=== PATIENT | female | born 1985 | race Caucasian/White ===

== ENCOUNTER 2018-01-16 10:03 | Emergency (ER) | payer MEDICAID ==
[2018-01-16] MEDS ORDERED: NS 1,000 ML IV ONE (10:25)
--- NOTE | 2018-01-16 10:26 | CPEKG ---
Heart Rate: 74 RR Interval: 811 P-R Interval: 144 QRSD Interval: 90 QT Interval: 356 QTC Interval: 395 P Jeff: 62 QRS Jeff: 53 T Wave Jeff: 20 EKG Severity - NORMAL ECG - EKG Impression: SINUS RHYTHM Electronically Signed By: Alondra Garsia 16-Jan-2018 13:37:01
[2018-01-16 10:39] LABS: PLATELET COUNT 207 10^3/uL (150-400)
--- NOTE | 2018-01-16 11:03 | EDPHY ---
H & P Stated Complaint: at work standing cutting hair became dizzy lightheaded Time Seen by Provider: 01/16/18 10:25 HPI/ROS: CHIEF COMPLAINT: Dizziness HISTORY OF PRESENT ILLNESS: 32-year-old female presents with a chief complaint of dizziness. 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 She eventually sat down in a chair and the symptoms resolved. She is currently asymptomatic. She slept well last night and ate a banana this morning. No recent illness. No prior episodes of syncope. REVIEW OF SYSTEMS: complete 10 point ROS negative except at noted in the HPI - Personal History LMP (Females 10-55): IUD In Place Current Tetanus/Diphtheria Vaccine: Unsure - Medical/Surgical History Hx Asthma: No Hx Chronic Respiratory Disease: No Hx Diabetes: No Hx Cardiac Disease: No Hx Renal Disease: No Hx Cirrhosis: No Hx Alcoholism: No Hx HIV/AIDS: No Hx Splenectomy or Spleen Trauma: No Other PMH: Denies - Social History Smoking Status: Current every day smoker - Physical Exam Exam: General Appearance: Alert, pleasant Eyes: Pupils equal and round, no conjunctival pallor ENT, Mouth: Normal inspection, Mucous membranes moist Neck: Normal inspection Respiratory: Lungs are clear to auscultation Cardiovascular: Regular rate and rhythm, no murmur Gastrointestinal: Abdomen is soft and nontender Neurological: A&O, CN II-XII intact, motor/sensory grossly intact, normal gait Skin: Warm and dry Extremities: Normal inspection Psychiatric: Mood and affect normal Constitutional: Initial Vital Signs Temperature (C) 36.8 C 01/16/18 10:10 Heart Rate 88 01/16/18 10:10 Respiratory Rate 17 01/16/18 10:10 Blood Pressure 116/79 01/16/18 10:10 O2 Sat (%) 96 01/16/18 10:10 O2 Delivery Mode Room Air Allergies/Adverse Reactions: No Known Allergies Allergy (Verified 01/16/18 10:10) Home Medications: Medication Instructions Recorded NK [No Known Home Meds] 01/16/18 Medical Decision Making - Diagnostics EKG Interpretation: EKG interpreted by me reveals normal sinus rhythm, rate 74, no ST or T segment changes. Interpretation: Normal EKG ED Course/Re-evaluation: This patient presents after an episode of dizziness, most likely vasovagal related to prolonged standing. EKG reveals no evidence of ischemia or dysrhythmia. IV normal saline 1 L given. Laboratory tests unremarkable. secured entrance monitor: NSR throughout. Warning signs discussed. Safe and stable for discharge home. Differential Diagnosis: Differential diagnosis includes though is not limited to cardiac dysrhythmia, CVA, TIA, GI bleed, sepsis, hypoglycemia. - Data Points Laboratory Results: Laboratory Results 01/16/18 10:32 01/16/18 10:32 Medications Given: Discontinued Medications Sodium Chloride (Ns) 1,000 mls @ 0 mls/hr IV ONCE ONE; Wide Open PRN Reason: Protocol Stop: 01/16/18 10:26 Last Admin: 01/16/18 10:31 Dose: 1,000 mls Departure - Departure Disposition: Home, Routine, Self-Care Clinical Impression: Near syncope Condition: Good Instructions: Near Syncope (ED) Additional Instructions: Drink plenty of fluids. Return for recurrent symptoms or any concerns. Referrals: Lachelle Armstrong MD [[facility] [place] - As per Instructions
[2018-01-16 11:31] VITALS: BP 107/70
== END 2018-01-16 11:33 | disposition home or self-care (01) ==
DX: R55 Syncope and collapse (principal); F17.200 Nicotine dependence, unspecified, uncomplicated; E86.9 Volume depletion, unspecified